=== PATIENT | female | born 2000 | race Caucasian/White ===

== ENCOUNTER 2024-04-11 22:36 | Emergency (ER) | payer SELFPAY ==
[~2024-04-11] VITALS: Ht 157.5 cm; Wt 63.2 kg
[2024-04-11 22:40] VITALS: BP 142/89; TEMP 98.2
[2024-04-11 23:21] LABS: COLLECTION METHOD CLEAN CATCH
[2024-04-11 23:30] LABS: URINE APPEARANCE CLEAR (CLEAR/HAZY); URINE BLOOD NEGATIVE (NEGATIVE); URINE COLOR YELLOW (YELLOW); URINE GLUCOSE NEGATIVE (NEGATIVE); URINE KETONE NEGATIVE (NEGATIVE); URINE NITRATE NEGATIVE (NEGATIVE); URINE PROTEIN(semi-quant) NEGATIVE (NEGATIVE)
[2024-04-11] MEDS ORDERED: MONISTAT 7 VAG45 GM VG (23:50)
[2024-04-11 23:59] VITALS: PULSE 88
== END 2024-04-11 23:58 | disposition home or self-care (01) ==
LOC: COL.ER 22:36
PROVIDERS: Emergency Medicine
DX: O98.812 Other maternal infectious and parasitic diseases complicating pregnancy, second trimester (principal); B37.31 Acute candidiasis of vulva and vagina; Z3A.18 18 weeks gestation of pregnancy